=== PATIENT | male | born 2000 | race Caucasian/White ===

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

== ENCOUNTER 2023-09-07 20:27 | Emergency (ER) | payer OTHER ==
[~2023-09-07] VITALS: Ht 175.2 cm; Wt 61.2 kg
[~2023-09-07 20:27] MED LIST changes: +SEPTDS PO
[2023-09-07 20:39] VITALS: BP 134/74
[2023-09-07 21:13] LABS: BILIRUBIN Negative (Negative); BLOOD Negative (Negative); CLARITY Turbid (Clear); COLOR Yellow (Yellow); GLUCOSE Negative (Negative); KETONE Trace (Negative); LEUKO ESTERASE 2+ (Negative); NITRITE Negative (Negative); PH 7.5 (4.5-8.0)
[2023-09-07] MEDS ORDERED: AZITHROMYCIN 250 MG TAB PO ONE (21:15)
[2023-09-07 21:21] LABS: BACTERIA 1+; WBC 41-50 wbc/hpf (0-5)
[2023-09-07] MEDS ORDERED: Water, Sterile 10 ML VIAL ONE (21:37)
== END 2023-09-07 22:15 | disposition home or self-care (01) ==
LOC: ED 20:27
PROVIDERS: Internal Medicine
DX: R36.9 Urethral discharge, unspecified (principal); Z20.2 Contact with and (suspected) exposure to infections with a predominantly sexual mode of transmission; F17.210 Nicotine dependence, cigarettes, uncomplicated

== ENCOUNTER 2023-10-12 22:29 | Emergency (ER) | payer OTHER ==
[~2023-10-12] VITALS: Ht 175.2 cm; Wt 59.0 kg
[2023-10-12 22:46] VITALS: BP 130/74
[2023-10-12] MEDS ORDERED: AZITHROMYCIN 250 MG TAB PO ONE (23:25)
[2023-10-12] MEDS ORDERED: Ceftriaxone Sodium 1 GM/10 ML SYR IV ONE (23:25)
[2023-10-12] MEDS ORDERED: Water, Sterile 10 ML VIAL ONE (23:50)
== END 2023-10-12 23:30 | disposition home or self-care (01) ==
LOC: ED 22:29
DX: Z20.2 Contact with and (suspected) exposure to infections with a predominantly sexual mode of transmission (principal)

== ENCOUNTER 2025-05-30 13:14 | Emergency (ER) | payer OTHER ==
[~2025-05-30] VITALS: Ht 177.8 cm; Wt 65.8 kg
[2025-05-30 13:51] VITALS: BP 126/78
[2025-05-30 14:21] LABS: BILIRUBIN Negative (Negative); BLOOD Negative (Negative); CLARITY Clear (Clear); COLOR Yellow (Yellow); KETONE 1+ (Negative); LEUKO ESTERASE Negative (Negative); NITRITE Negative (Negative); PH 5.5 (4.5-8.0); SPECIFIC GRAVITY >= 1.030 (1.001-1.030); UROBILINOGEN 1.0 E.U./dl (0.0-1.0)
[2025-05-30 14:42] LABS: BACTERIA 1+; EPITHELIAL CELLS 0-2; HYALINE CAST 0-2; MUCOUS 1+; RBC 0-2 rbc/hpf (0-2); WBC 0-2 wbc/hpf (0-5)
[2025-05-30] MEDS ORDERED: metroNIDAZOLE 500 MG TAB PO ONE (14:50)
[2025-05-30] MEDS ORDERED: METRONIDAZOLE500 M1 PO (14:53)
== END 2025-05-30 14:58 | disposition home or self-care (01) ==
LOC: ED 13:14
PROVIDERS: Nurse Practitioner Family
DX: Z20.2 Contact with and (suspected) exposure to infections with a predominantly sexual mode of transmission (principal)